=== PATIENT | female | born 1990 | race Caucasian/White ===

== ENCOUNTER 2018-07-22 20:35 | Emergency (ER) | payer OTHER ==
[~2018-07-22] VITALS: Ht 170.2 cm; Wt 110.7 kg
[2018-07-22 20:39] VITALS: BP 128/81
--- NOTE | 2018-07-22 20:39 | NUR ---
PT AMBULATED TO ER BED 3
--- NOTE | 2018-07-22 20:45 | NUR ---
27 YO F BIB SELF PRESENTS TO THE ED C/O 07/08 BURNING MIDDLE/RUQ EPIGASTRIC PAIN AND NAUSEA X 3 DAYS. PT ALSO REPORTS HAVING WHITE COLORED LOOSE STOOL AND VOMITING X 1 DAY. PT ALSO STATES SHE HAS HAD DECREASED APPETITE X 1 DAY. -- ABD IS SOFT, ROUND, NON-TENDER. BOWEL SOUNDS PRESENT, ACTIVE TO ALL 4 QUADRANTS. -- PT IS CALM, COOPERATIVE, BEHAVIOR APPROPRIATE. -- SKIN PINK, DRY, WARM. PMH-- HYPOTHYROIDISM RX-- DENIES PT POSITIONED FOR COMFORT. HOB ELEVATED. SIDE RAIL UP X1. BED IN LOWEST POSITION. VSS. NO APPARENT DISTRESS AT THIS TIME.
[2018-07-22] MEDS ORDERED: NACL 0.9% 500 ML IV ONE (21:04)
[2018-07-22] MEDS ORDERED: KETOROLAC 30 MG/ML VIAL IVP ONE (21:05)
[2018-07-22] MEDS ORDERED: ONDANSETRON 4 MG/2 ML VIAL IVP ONE (21:05)
[2018-07-22 21:34] LABS: BASOPHILS % (AUTO) 0.5 % (0.0-2.0); EOSINOPHILS # (AUTO) 0.1 K/uL (0-0.4); HEMATOCRIT 37.7 % (36-48); HEMOGLOBIN 12.7 g/dL (12.0-16.0); LYMPHOCYTES # (AUTO) 0.6 K/uL (2.5-16.5); LYMPHOCYTES % (AUTO) 9.5 % (20.5-51.1); MEAN CORPUSCULAR HEMOGLOBIN 28 pg (27-31); MEAN CORPUSCULAR HGB CONC 34 g/dL (33-37); MONOCYTES # (AUTO) 0.2 K/uL (0.8-1.0); MONOCYTES % (AUTO) 3.2 % (1.7-9.3); NEUTROPHILS % (AUTO) 84.8 % (42.2-75.2); PLATELET COUNT (AUTO) 277 K/uL (140-450); RED BLOOD CELL COUNT(AUTO) 4.48 MIL/uL (4.20-5.40); RED CELL DISTRIBUTION WIDTH 14.2 % (11.6-13.7); WHITE BLOOD COUNT (AUTO) 5.9 K/uL (4.8-10.8)
[2018-07-22 21:57] LABS: ALBUMIN 3.6 g/dL (3.4-5.0); ANION GAP 11.7 (8-16); CARBON DIOXIDE 26.5 mmol/L (21-32); CREATININE 1.1 mg/dL (0.6-1.3); POTASSIUM 3.2 mmol/L (3.5-5.1); TOTAL BILIRUBIN 0.6 mg/dL (0.0-1.0)
--- NOTE | 2018-07-22 22:43 | NUR ---
PT RETURN FROM XRAY
[2018-07-22 23:35] VITALS: BP 122/84
--- NOTE | 2018-07-22 23:35 | NUR ---
Patient discharged with v/s stable. Written and verbal after care instructions given and explained. Patient alert, oriented and verbalized understanding of instructions. Ambulatory with steady gait. All questions addressed prior to discharge. ID band removed. Patient advised to follow up with PMD. Rx of ZOFRAN AND PROTONIX given. Patient educated on indication of medication including possible reaction and side effects. Opportunity to ask questions provided and answered.
== END 2018-07-22 23:35 | disposition home or self-care (01) ==
LOC: MED 20:35
DX: K52.9 Noninfective gastroenteritis and colitis, unspecified (principal); E03.9 Hypothyroidism, unspecified
CPT/HCPCS: 36415; 74022; 80053; 81002; 81025; 83690; 85025; 96361; 96374; 96375; 99284; J1885; J2405; J7030